=== PATIENT | male | born 1975 | race Caucasian/White ===

== ENCOUNTER 2024-04-29 12:10 | Inpatient (IN) ==
[2024-04-29 12:43] LABS: Venous Bicarbonate HCO3 12.5 mmol/L (24-28)
[2024-04-29 12:45] LABS: ABS Lymphocytes 0.9 10^3/uL (1.0-4.8); ABS Monocytes 1.2 10^3/uL (0.0-1.1); Eosinophil % 0.2 %; Hematocrit 37.4 % (38-53); Hemoglobin 12.3 g/dL (13.2-16.3); Lymphocyte % 5.3 %; Mean Corpuscular Hemoglobin 31.4 pg (27-33); Mean Corpuscular Hgb Conc 32.9 g/dL (31-36); Mean Corpuscular Volume 95.4 fL (80-97); Mean Platelet Volume 8.8 fL (7.5-11.2); Platelet Count 218 10^3/uL (150-450); Red Blood Count 3.92 10^6/uL (4.06-5.63); Red Cell Distribution Width 13.4 % (12-17); White Blood Count 17.1 10^3/uL (3.6-10.2)
[2024-04-29] MEDS: Lactated Ringers 1000 ml BAG 1,000 ML IV ONE ×2 (12:48→14:08)
[2024-04-29] MEDS: fentaNYL 100 mcg/2 ml 50 MCG/ML VIAL IV SLOW PU ONE (12:50)
[2024-04-29 13:35] LABS: Urine Appearance Clear; Urine Bilirubin Negative (Negative); Urine Blood Trace (Negative); Urine Color Light-Yellow; Urine Glucose 4+ (>=1000 mg/dL) (Negative); Urine Ketones 4+ (Negative); Urine Nitrite Negative (Negative); Urine Protein Negative (Negative); Urine Urobilinogen Negative (Negative)
[2024-04-29 13:51] LABS: Albumin 4.3 g/dL (3.2-5.2); Albumin/Globulin Ratio 1.7 (1-3); Calcium 9.1 mg/dL (8.6-10.3); Creatinine, Serum 1.61 mg/dL (0.67-1.17); Globulin 2.6 g/dL (2-4); Potassium 5.1 mmol/L (3.5-5.0); Total Bilirubin 0.5 mg/dL (0.2-1.0); Total Protein 6.9 g/dL (6.4-8.9); eGFR CKD-EPI 52.4 (>60)
[2024-04-29] MEDS ORDERED: Dextrose 50% Syringe 50 ml 25 GM/50 ML SYRINGE IV PUSH PRN (14:09)
[2024-04-29] MEDS ORDERED: Ondansetron 4 mg VIAL 2 MG/ML 2 ml VIAL IV PRN (15:11)
[2024-04-29] MEDS ORDERED: Naloxone Nasal Spray 4 MG/0.1 ML NASAL.SPR INTRANASAL PRN (15:11)
[2024-04-29] MEDS: Insulin Infusion 100unit/100mL 100 UNIT/100 ML BAG IV SCH ×2 (15:24→23:19)
[2024-04-29] MEDS: NS 0.9% 1000 ml BAG 1,000 ML IV SCH ×2 (15:32→15:53)
[2024-04-29] MEDS ORDERED: Enoxaparin 40 MG/0.4 ML SYR SUBCUT SCH (16:00)
[2024-04-29 16:12] LABS: Anion Gap 13 mmol/L (2-16); Blood Urea Nitrogen 35 mg/dL (6-24); CO2 Carbon Dioxide 16 mmol/L (22-32); Calcium 7.7 mg/dL (8.6-10.3); Chloride 103 mmol/L (101-111); Creatinine, Serum 1.21 mg/dL (0.67-1.17); Glucose 355 mg/dL (70-100); Magnesium 1.8 mg/dL (1.9-2.7); Phosphorus 2.2 mg/dL (2.5-5.0); Potassium 4.2 mmol/L (3.5-5.0); Sodium 132 mmol/L (135-145); eGFR CKD-EPI 73.9 (>60)
[2024-04-29] MEDS: Lactated Ringers 1000 ml BAG 1,000 ML IV SCH (16:45)
[2024-04-29 18:43] LABS: Magnesium 2.3 mg/dL (1.9-2.7)
[2024-04-29] MEDS: D5W 1/2 NS 1000 ml BAG 1,000 ML IV SCH ×2 (19:16→21:19)
[2024-04-29 20:49] LABS: Iron < 20 ug/dL (50-212)
[2024-04-29 21:00] LABS: Creatinine, Serum 1.22 mg/dL (0.67-1.17); Phosphorus 1.6 mg/dL (2.5-5.0); Potassium 4.1 mmol/L (3.5-5.0); eGFR CKD-EPI 73.1 (>60)
[2024-04-29 21:05] LABS: TSH Ultra Thyroid Stim Horm 0.21 mcIU/mL (0.34-5.60)
[2024-04-29 21:16] LABS: Folate > 20.00 ng/mL (5.90-24.80)
[2024-04-29 21:17] LABS: Vitamin B12 1282 pg/mL (180-914)
[2024-04-29] MEDS: Enoxaparin 30 MG/0.3 ML SYR SUBCUT ONE (21:17)
[2024-04-29] MEDS: Insulin GLARGINE 100 un/ml 10 ml VIAL SUBCUT SCH (23:24)
[2024-04-30] MEDS: HYDROmorphone 0.5 MG/0.5 ML SYRINGE IV SLOW PU PRN (00:16)
[2024-04-30] MEDS: Dextrose 50% Syringe 50 ml 25 GM/50 ML SYRINGE IV PUSH PRN (00:41)
[2024-04-30 01:16] LABS: Calcium 7.5 mg/dL (8.6-10.3); Creatinine, Serum 0.91 mg/dL (0.67-1.17); Magnesium 1.7 mg/dL (1.9-2.7); Phosphorus 1.6 mg/dL (2.5-5.0); Potassium 3.2 mmol/L (3.5-5.0)
[2024-04-30 05:56] LABS: Calcium 7.8 mg/dL (8.6-10.3); Creatinine, Serum 0.88 mg/dL (0.67-1.17); Magnesium 1.8 mg/dL (1.9-2.7); eGFR CKD-EPI 106.1 (>60)
[2024-04-30 05:57] LABS: Phosphorus 2.2 mg/dL (2.5-5.0)
[2024-04-30 13:21] LABS: Calcium 9.3 mg/dL (8.6-10.3); Creatinine, Serum 1.02 mg/dL (0.67-1.17); Phosphorus 1.9 mg/dL (2.5-5.0); eGFR CKD-EPI 90.7 (>60)
[2024-04-30 13:45] LABS: PCO2 Arterial 44 mmHg (35-45); PO2 Arterial 96 mmHg (80-100)
[2024-04-30] MEDS ORDERED: Clindamycin 900 MG/50 **NS BAG 900 MG/50 ML BAG ONE (14:44)
[2024-04-30] MEDS ORDERED: Famotidine IV 10 MG/ML 2 ml VIAL (20 mg) ONE (14:52)
[2024-04-30] MEDS ORDERED: fentaNYL 100 mcg/2 ml 50 MCG/ML VIAL ONE (14:52)
[2024-04-30] MEDS ORDERED: Midazolam 2 mg/2 ml VIAL 1 mg/ml 2 ml VIAL (2 mg) ONE (14:52)
[2024-04-30] MEDS ORDERED: Rocuronium 50 mg VIAL 10 mg/ml 5 ml VIAL (50 mg) ONE (15:11)
[2024-04-30] MEDS ORDERED: Propofol 10 MG/ML 20 ML BTL ONE (15:11)
[2024-04-30] MEDS ORDERED: Lidocaine 2% PF 5 ML VIAL ONE (15:11)
[2024-04-30] MEDS ORDERED: Ondansetron 4 mg VIAL 2 MG/ML 2 ml VIAL ONE (15:52)
[2024-04-30] MEDS ORDERED: Senna TAB 8.6 mg TAB PO PRN (17:38)
[2024-04-30] MEDS ORDERED: Morphine 2 MG/ML SYRINGE IV PRN (17:38)
[2024-04-30] MEDS ORDERED: Magnesium Hydroxide LIQ 30 ML UDC PO PRN (17:38)
[2024-04-30] MEDS: Lactated Ringers 1000 ml BAG 1,000 ML IV SCH (18:27)
[2024-04-30 18:49] LABS: Hemoglobin 12.1 g/dL (13.2-16.3)
[2024-04-30] MEDS ORDERED: Insulin GLARGINE 100 un/ml 10 ml VIAL SUBCUT SCH (21:00)
[2024-04-30] MEDS: Magnesium Hydroxide LIQ 30 ML UDC PO SCH (21:14)
[2024-04-30] MEDS: Clindamycin 600 MG/D5W BAG 600 MG/50 ML BAG IV SCH (23:25)
[2024-05-01 06:10] LABS: Hematocrit 31.8 % (38-53); Mean Platelet Volume 8.4 fL (7.5-11.2); Platelet Count 173 10^3/uL (150-450)
[2024-05-01 06:30] LABS: Anion Gap 8 mmol/L (2-16); Blood Urea Nitrogen 17 mg/dL (6-24); CO2 Carbon Dioxide 31 mmol/L (22-32); Calcium 8.6 mg/dL (8.6-10.3); Chloride 97 mmol/L (101-111); Creatinine, Serum 0.89 mg/dL (0.67-1.17); Glucose 209 mg/dL (70-100); Potassium 3.7 mmol/L (3.5-5.0); Sodium 136 mmol/L (135-145); eGFR CKD-EPI 105.7 (>60)
[2024-05-01] MEDS ORDERED: Dextrose 50% Syringe 50 ml 25 GM/50 ML SYRINGE IV PUSH PRN (07:31)
[2024-05-01 08:32] LABS: Urine Appearance No Cx Clear (Clear); Urine Bacteria No Culture Absent /HPF (Absent); Urine Bilirubin No Culture Negative (Negative); Urine Blood No Culture Negative (Negative); Urine Color No Culture Light-Yellow; Urine Glucose No Culture 4+ (>=1000 mg/dL) (Negative); Urine Ketones No Culture 3+ (Negative); Urine Leukocytes No Culture Negative Leu/uL (Negative); Urine Nitrite No Culture Negative (Negative); Urine Protein No Culture Trace (Negative); Urine Red Blood Cell No Cult Absent /HPF (0-Trace); Urine Urobilinogen No Cx Negative (Negative); Urine White Blood Cell No Cult Absent /HPF (0-Trace)
[2024-05-01 09:50] LABS: Magnesium 1.8 mg/dL (1.9-2.7)
[2024-05-01] MEDS: Al Hydrox/Mg Hydrox/Simet LIQ 30 ML UDC PO ONE (11:16)
[2024-05-01 11:23] LABS: % Iron Saturation 9 % (15-55); .Transferrin 152 mg/dL (203-362); Iron < 20 ug/dL (50-212); Total Iron Binding Capacity 213 mcg/dL (250-450); Unsaturated Iron Binding 193 ug/dL
[2024-05-01 11:43] LABS: Ferritin 107.7 ng/mL (24-336)
[2024-05-01] MEDS: Enoxaparin 40 MG/0.4 ML SYR SUBCUT SCH (12:07)
[2024-05-01] MEDS: Polyethylene Glycol 3350 17 GM PACKET PO PRN (17:30)
[2024-05-01] MEDS: Metoprolol Tartrate 5 mg VIAL 5 ml VIAL (1 mg/ml) ONE ×2 (19:06→19:27)
[2024-05-01] MEDS: Metoprolol Tartrate 5 mg VIAL 5 ml VIAL (1 mg/ml) IV ONE ×3 (19:06→20:34)
[2024-05-01 20:59] LABS: Hematocrit 36.4 % (38-53); Hemoglobin 12.7 g/dL (13.2-16.3)
[2024-05-02 07:55] LABS: Hematocrit 34.9 % (38-53); Hemoglobin 12.1 g/dL (13.2-16.3)
[2024-05-02 08:42] LABS: Mean Platelet Volume 8.8 fL (7.5-11.2); Platelet Count 174 10^3/uL (150-450)
[2024-05-02 11:14] LABS: ABS Eosinophils 0.2 10^3/uL (0.0-0.5); ABS Lymphocytes 1.7 10^3/uL (1.0-4.8); ABS Monocytes 0.9 10^3/uL (0.0-1.1); ABS Neutrophils 6.3 10^3/uL (1.5-7.6); Eosinophil % 1.8 %; Lymphocyte % 18.8 %; Mean Corpuscular Hemoglobin 31.6 pg (27-33); Mean Corpuscular Hgb Conc 34.3 g/dL (31-36); Mean Corpuscular Volume 92.3 fL (80-97); Mean Platelet Volume 9.2 fL (7.5-11.2); Nucleated Red Blood Cells % 0.1 %/100WBC (0.0-0.8); Platelet Count 176 10^3/uL (150-450); Red Blood Count 3.79 10^6/uL (4.06-5.63); Red Cell Distribution Width 12.8 % (12-17)
[2024-05-02 21:17] LABS: Calcium 8.4 mg/dL (8.6-10.3); Creatinine, Serum 0.79 mg/dL (0.67-1.17); Potassium 3.5 mmol/L (3.5-5.0); eGFR CKD-EPI 109.6 (>60)
[2024-05-03 05:49] LABS: ABS Eosinophils 0.3 10^3/uL (0.0-0.5); ABS Lymphocytes 2.4 10^3/uL (1.0-4.8); ABS Monocytes 1.1 10^3/uL (0.0-1.1); ABS Neutrophils 5.8 10^3/uL (1.5-7.6); Eosinophil % 2.8 %; Hematocrit 34.2 % (38-53); Hemoglobin 11.6 g/dL (13.2-16.3); Lymphocyte % 25.3 %; Mean Corpuscular Hemoglobin 31.2 pg (27-33); Mean Corpuscular Volume 91.8 fL (80-97); Mean Platelet Volume 8.6 fL (7.5-11.2); Nucleated Red Blood Cells % 0.1 %/100WBC (0.0-0.8); Platelet Count 196 10^3/uL (150-450); Red Blood Count 3.73 10^6/uL (4.06-5.63); Red Cell Distribution Width 12.7 % (12-17); White Blood Count 9.6 10^3/uL (3.6-10.2)
[2024-05-03 06:23] LABS: Albumin 3.1 g/dL (3.2-5.2); Albumin/Globulin Ratio 1.1 (1-3); Calcium 8.2 mg/dL (8.6-10.3); Creatinine, Serum 0.75 mg/dL (0.67-1.17); Globulin 2.8 g/dL (2-4); Potassium 3.6 mmol/L (3.5-5.0); Total Bilirubin 0.6 mg/dL (0.2-1.0); Total Protein 5.9 g/dL (6.4-8.9); eGFR CKD-EPI 111.3 (>60)
[2024-05-03] MEDS: Aspirin EC 81 mg TAB.EC (enteric coated) PO SCH (08:39)
[2024-05-03] MEDS: Iodixanol (CONTRAST) 320 MG/ML 100 ML SDV IV ONE (16:54)
[2024-05-04 06:35] LABS: ABS Eosinophils 0.6 10^3/uL (0.0-0.5); ABS Lymphocytes 2.3 10^3/uL (1.0-4.8); ABS Neutrophils 5.5 10^3/uL (1.5-7.6); ABS Nucleated RBC 0.01 10^3/ul; Hematocrit 35.1 % (38-53); Hemoglobin 11.9 g/dL (13.2-16.3); Lymphocyte % 24.4 %; Mean Corpuscular Hemoglobin 30.9 pg (27-33); Mean Corpuscular Hgb Conc 33.8 g/dL (31-36); Mean Corpuscular Volume 91.4 fL (80-97); Mean Platelet Volume 8.6 fL (7.5-11.2); Nucleated Red Blood Cells % 0.1 %/100WBC (0.0-0.8); Platelet Count 249 10^3/uL (150-450); Red Blood Count 3.85 10^6/uL (4.06-5.63); Red Cell Distribution Width 13.2 % (12-17); White Blood Count 9.4 10^3/uL (3.6-10.2)
[2024-05-04 07:08] LABS: Albumin 3.2 g/dL (3.2-5.2); Albumin/Globulin Ratio 1.1 (1-3); Calcium 8.4 mg/dL (8.6-10.3); Creatinine, Serum 0.76 mg/dL (0.67-1.17); Globulin 2.8 g/dL (2-4); Potassium 3.5 mmol/L (3.5-5.0); Total Bilirubin 0.5 mg/dL (0.2-1.0); eGFR CKD-EPI 110.9 (>60)
[2024-05-05 06:30] LABS: Albumin 3.3 g/dL (3.2-5.2); Albumin/Globulin Ratio 1.2 (1-3); Calcium 8.5 mg/dL (8.6-10.3); Creatinine, Serum 0.77 mg/dL (0.67-1.17); Globulin 2.8 g/dL (2-4); Potassium 3.6 mmol/L (3.5-5.0); Total Bilirubin 0.5 mg/dL (0.2-1.0); Total Protein 6.1 g/dL (6.4-8.9); eGFR CKD-EPI 110.4 (>60)
[2024-05-05 06:56] LABS: ABS Eosinophils 0.6 10^3/uL (0.0-0.5); ABS Lymphocytes 2.4 10^3/uL (1.0-4.8); ABS Monocytes 1.1 10^3/uL (0.0-1.1); ABS Neutrophils 5.6 10^3/uL (1.5-7.6); ABS Nucleated RBC 0.01 10^3/ul; Eosinophil % 6.5 %; Hematocrit 35.1 % (38-53); Hemoglobin 12.3 g/dL (13.2-16.3); Lymphocyte % 24.2 %; Mean Corpuscular Hemoglobin 31.8 pg (27-33); Mean Corpuscular Hgb Conc 34.9 g/dL (31-36); Mean Platelet Volume 8.7 fL (7.5-11.2); Nucleated Red Blood Cells % 0.1 %/100WBC (0.0-0.8); Platelet Count 314 10^3/uL (150-450); Red Blood Count 3.85 10^6/uL (4.06-5.63); Red Cell Distribution Width 12.7 % (12-17); White Blood Count 9.7 10^3/uL (3.6-10.2)
[2024-05-05 09:31] VITALS: BP 115/71
== END 2024-05-05 15:25 | DRG 308 ==
LOC: ED 12:10 → EDHOLD 12:10 → SUATTDRO 14:13 → ICU 18:34 → EDHOLD 23:17 → AA 04-30 11:49 → SSU 04-30 17:34 → MEDTELE 05-01 19:57
PROVIDERS: ADMIT Surgery Surgical Critical Care; ATTEND Internal Medicine